=== PATIENT | female | born 1940 | race Caucasian/White ===

== ENCOUNTER → 2018-04-22 | Outpatient (CLI) | payer OTHER, BC ==
[~2018-04-22] MED LIST: ALEVE220 M1 PO; CALCIUM 600 MG1 EAC3 PO; CELEXA 20 MG TA20 MG PO; CENTRUM SILVER1 EAC1 PO; FISH OIL 1,2001 EAC3 PO; FOSAMAX 70 MG T70 M1 PO; MOBIC7.5 MG PO; MULTIVITAMINS PO; NORVASC 5 MG TAB5 MG PO; PLAVIX 75 MG TA75 M1 PO; PRAVACHOL40 MG PO; VITAMIN B-12500 MCG PO; VITAMIN D1000 UNI1 PO
== END ==
LOC: CAT 09:19
DX: R10.32 Left lower quadrant pain (principal); J98.4 Other disorders of lung; J98.11 Atelectasis; Z90.49 Acquired absence of other specified parts of digestive tract